=== PATIENT | female | born 1935 | race Asian ===

== ENCOUNTER → 2016-10-15 | Outpatient (CLI) | payer MEDICARE, OTHER ==
[~2016-10-15] MED LIST: ACETAMINOPHEN PO; AMLODIPINE BESYL5 MG PO; ANTIVERT PO; ASPIRIN PO; ASPIRIN81 M1 PO; ASPIRIN81 M2 PO; ASPIRIN81 MG PO; AUGMENTIN PO; BACTRIM DS TABL1 TA1 PO; BACTRIM DS TABL1 TA2 PO; BENAZEPRIL HCL40 MG PO; BENAZEPRIL PO; BENTYL10 M1 PO; BENTYL10 MG PO; CHEWABLE ASPIRI81 MG PO; CLARITIN10 M3 PO; CLOBETASOL 0.0560 GM TOP; CLOPIDOGREL BIS75 MG PO; CLOPIDOGREL75 MG PO; DARVOCET-N 1001 TAB PO; DEXILANT60 MG PO; FIORICET; FIORINAL CAPSUL1 CAP PO; HCTZ PO; HYDROCHLOROTHIA25 MG PO; HYDROCODONE/APA1 T15 PO; HYDROXYZINE HCL10 MG PO; KCL PO; LASIX20 MG PO; LEVAQUIN PO; LEVOTHYROXINE88 MCG PO; LEVOXYL88 MC1 PO; LORTAB 5/500 TA1 TA1 PO; LORTAB 5/500 TA1 TA2 PO; LOTENSIN PO; LOTENSIN40 MG PO; MACROBID100 M1 PO; MECLIZINE HCL25 M2 PO; NEXIUM PO; NITROGYLCERIN SUBLINGUAL; NORCO1 TAB 10/3 PO; NORMODYNE PO; NORMODYNE100 M1 PO; NORMODYNE100 MG PO; NORVASC PO; NORVASC10 MG PO; NYSTATIN-TRIAMC15 G1 TP; PHENERGAN25 M1 PO; PHENERGAN25 MG PO; PLAVIX PO; PRILOSEC20 MG PO; PROTONIX PO; REVLIMID25 MG PO; SALONPAS PATCH1 EACH TOP; SIMVASTATIN10 MG PO; SPIRONOLAC1 TAB 25/2 PO; SYNTHROID PO; SYNTHROID112 MCG PO; SYNTHROID88 MCG PO; TRAMADOL HCL50 M1 PO; TRAMADOL HCL50 M2 PO; TRIAMCINOLONE A15 G1 TOP; TYLENOL EXTRA500 M1 PO; ULTRAM PO; ZANTAC PO; ZETIA PO; ZOCOR PO; ZOCOR10 MG PO; ZOFRAN ODT4 MG PO; ZOFRAN PO
--- NOTE | ~2016-10-15 | XA51 ---
[facility] A Service of [facility] & [facility] RADIOLOGY TEXT RESULTS PATIENT: IGLESIA KRAUSE [facility] : [facility] UNIT #: [id number] AGE: [address]: Syd Cadet MD SEX: F ORDER DR: [id number] [place], [place] [address] [id number] O MR#: [id number] Acc #: [id number] NAME: IGLESIA KRAUSE : 1935 SEX: F STUDY DATE/TIME: 10/15/2016 9:31 UNIT: [facility] ROOM: STUDY DESCRIPTION: XA BX Bone Marrow Attending Physician: Syd Cadet M.D. Ordering Physician: Syd Cadet M.D. Primary Care Physician: Dena Velez M.D. MEDICAL IMAGING REPORT This report is preliminary unless electronic signature is present EXAM CT-guided bone marrow biopsy. INDICATION Multiple myeloma. FINDINGS Please see CT guide for results. Dictated by... Kay Gross M.D. THIS IS AN ELECTRONICALLY VERIFIED REPORT Kay Gross M.D. at 10/19/2016 3:28 PM AFF/hermann TD: 10/16/2016 09:28 JOB #: [id number] MEDICAL IMAGING REPORT Page 1 of 1 COPY
--- NOTE | ~2016-10-15 | CT134 ---
[facility] A Service of [facility] & [facility] RADIOLOGY TEXT RESULTS PATIENT: IGLESIA KRAUSE [facility] UNIT #: [id number] AGE: [address]: Syd Cadet MD SEX: F ORDER DR: [id number] [facility]. [place], [place] [address] [id number] O MR#: [id number] Acc #: [id number] NAME: IGLESIA KRAUSE : 1935 SEX: F STUDY DATE/TIME: 10/15/2016 9:31 UNIT: [facility] ROOM: STUDY DESCRIPTION: CT Guide Attending Physician: Syd Cadet M.D. Ordering Physician: Syd Cadet M.D. Primary Care Physician: Dena Velez M.D. MEDICAL IMAGING REPORT This report is preliminary unless electronic signature is present EXAM CT-guided bone marrow biopsy. INDICATION Multiple myeloma. TECHNIQUE This CT exam was performed with one or more of the following radiation dose reduction techniques: automatic exposure control, adjustment of mA and/or kV according to patient size, and iterative reconstruction. PROCEDURE The risks, benefits, and alternatives to the procedure were explained to the patient, and signed informed consent was obtained. She was placed prone on the CT scanner gantry and preliminary CT scan was performed through the region of interest. An appropriate site overlying the patient's left iliac bone was selected. The overlying skin was marked. Patient was prepped and draped in the usual sterile fashion. Time-out was performed as per protocol. Skin and subcutaneous tissues were anesthetized with buffered lidocaine and a bone marrow biopsy needle was advanced into the left iliac bone. Repeat CT scan confirmed appropriate positioning of the needle which was then advanced into the bone marrow. Bone marrow aspirate was obtained. Needle was advanced further into the bone marrow and then removed which showed an adequate core sample. Manual pressure was applied until hemostasis was obtained. Patient did receive moderate sedation. I supervised the IVR nurse who monitored the patient's vital signs for a total of 6 minutes face to face time. IMPRESSION Technically successful bone marrow biopsy as noted above. CT was used during the procedure and permanent images were saved. [facility] A Service of [facility] & [facility] RADIOLOGY TEXT RESULTS PATIENT: IGLESIA KRAUSE LOCATION: [facility] : 36 UNIT #: [id number] AGE: [address]: Syd Cadet MD SEX: F ORDER DR: Dictated by... Kay Gross M.D. THIS IS AN ELECTRONICALLY VERIFIED REPORT Kay Gross M.D. at 10/19/2016 3:28 PM AFF/hermann TD: 10/16/2016 09:16 JOB #: [id number] MEDICAL IMAGING REPORT Page 1 of 1 COPY
[2016-10-15 08:40] LABS: HEMATOCRIT 29.9 % (35.0-45.0); HEMOGLOBIN 9.8 gm/dL (12.0-16.0); MEAN CELL VOLUME 94.9 FL (83-96); MEAN CORPUSCULAR HEMOGLOBIN 31.2 PG (28-34); MEAN CORPUSCULAR HGB CONC 32.9 g/dL (30-36); MEAN PLATELET VOLUME 8.1 FL (6.5-11.5); RED BLOOD COUNT 3.16 X10e (3.90-5.30); RED CELL DISTRIBUTION WIDTH 15.2 % (11.0-15.5); WHITE BLOOD COUNT 5.8 X10e3 (4.0-10.5)
[2016-10-15 08:51] LABS: PARTIAL THROMBOPLASTIN TIME 24.3 SECONDS (23.5-31.3); PROTHROMBIN TIME (PATIENT) 10.9 SECONDS (10.0-11.7)
== END | disposition home or self-care (01) ==
LOC: CCAT 07:59
PROVIDERS: Internal Medicine Medical Oncology
DX: C90.00 Multiple myeloma not having achieved remission (principal)
CPT/HCPCS: 38221; G0364; 36415; 77012; 82947; 85027; 85610; 85730; 88305; 88311; 88313; 99144; 99151; 99153; J2250; J3010

== ENCOUNTER → 2016-11-10 | Outpatient (CLI) | payer MEDICARE ==
--- NOTE | ~2016-11-10 | MR32 ---
[facility] A Service of [facility] & [facility] RADIOLOGY TEXT RESULTS PATIENT: IGLESIA KRAUSE LOCATION: [facility] : 37 UNIT #: [id number] AGE: [address]: Dena Velez MD SEX: F ORDER DR: [id number] [address] [address] [id number] O MR#: [id number] Acc #: [id number] NAME: IGLESIA KRAUSE : 1935 SEX: F STUDY DATE/TIME: 11/10/2016 10:29 UNIT: [facility] ROOM: STUDY DESCRIPTION: MR Cervical Wo Contrast Attending Physician: Dena Velez M.D. Referring Physician: Dena Velez M.D. Ordering Physician: Dena Velez M.D. Primary Care Physician: Dena Velez M.D. MRI CENTER REPORT This report is preliminary unless electronic signature is present. EXAM MRI of the cervical spine without contrast dated 11/10/2016. COMPARISON MRI cervical spine without contrast dated 02/05/1999. HISTORY Increasing neck pain, worse on the right side in the last 1-2 months. History of degenerative disc disease and right upper extremity radiculopathy. FINDINGS Multisequence multiplanar imaging of the cervical spine was obtained without contrast. Disc osteophyte complex are at multiple levels. There is minimal retrolisthesis of C4 with respect to C5. Cord is compressed and flattened at the level of C4-5 and C5-6. In the sagittal STIR sequence, faint increased T2 signal noted within the cord at the level of C5-6 (series 4, image 6). It is not well correlated in the other sequences. It is unclear if it is a true lesion or artifactual. It was not seen on the previous study. Disc disease has worsened at C5-6 when compared to the prior study from 8 years ago. Pre and paravertebral soft tissues are unremarkable. C2-3: Small amount of fluid is seen within the articulation of bilateral lateral masses. Mild disc bulge is seen with small central protrusion. No canal stenosis or neural foraminal narrowing. Mild bilateral facet changes. C3-4: Concentric disc bulge with superimposed central focal moderate protrusion with mild canal stenosis. No neural foraminal narrowing. Mild bilateral facet changes. [facility]. [facility] A Service of [facility] RADIOLOGY TEXT RESULTS PATIENT: IGLESIA KRAUSE LOCATION: [facility] : 37 UNIT #: [id number] AGE: [address]: Dena Velez MD SEX: F ORDER DR: C4-5: Disc osteophyte complex with superimposed nnofc-al-yolq central moderate protrusion/extrusion with severe canal stenosis and cord compression. Uvqn-ky-lpflljow bilateral facet changes are noted with inferior mild bilateral neural foraminal narrowing. C5-6: Disc osteophyte complex which is asymmetrically prominent in the rmmawgs-bk-xszpf subarticular region. Ruqldpyb-ue-gvsdpu canal stenosis is noted with cord compression. Mild inferior bilateral neural foraminal narrowing is noted with relatively patent superior aspect. C6-7: Concentric disc bulge with tiny central protrusion and mild bilateral facet changes. Borderline size to mild canal stenosis. C7-T1: Mild degenerative disc disease without canal stenosis or neural foraminal narrowing. Minimal bilateral facet changes. IMPRESSION 1. Degenerative changes are noted at multiple levels as described above, relatively worse at C4-5 and C5-6 with severe canal stenosis and cord compression. 2. Faint increased T2 signal is noted within the C5-6 cord in the sagittal T2 STIR sequence but it is not correlated in the other sequences including the sagittal T2 restore sequence. It could be artifactual; however, correlate clinically. 3. When compared to the previous study, findings are worse at C5-6 with the relatively stable findings at the other levels. 1. Dictated by... Yamil Ko M.D. THIS IS AN ELECTRONICALLY VERIFIED REPORT Yamil Ko M.D. at 11/11/2016 11:36 AM CPR/bernice TD: 11/11/2016 11:22 JOB #: [id number] MRI CENTER REPORT Page 1 of 1
== END | disposition home or self-care (01) ==
LOC: SMRI 09:39
DX: M50.33 Other cervical disc degeneration, cervicothoracic region (principal); M48.02 Spinal stenosis, cervical region; M50.21 Other cervical disc displacement, high cervical region; M50.220 Other cervical disc displacement, mid-cervical region, unspecified level; M50.81 Other cervical disc disorders, high cervical region; M50.820 Other cervical disc disorders, mid-cervical region, unspecified level; M50.821 Other cervical disc disorders at C4-C5 level; M25.78 Osteophyte, vertebrae
CPT/HCPCS: 72141

== ENCOUNTER → 2016-12-04 | Day surgery (SDC) | payer MEDICARE, OTHER ==
--- NOTE | ~2016-12-04 | OR ---
Unit #: [id number] #: [id number] Patient: IGLESIA KRAUSE [id number] [place], [place] [address] [id number] O MR#: [id number] NAME: IGLESIA KRAUSE ROOM: Date of Procedure: 12/04/2016 Admission Date: 12/04/2016 Surgeon: Waldo Sorto M.D. : 1935 Attending Physician: Waldo Sorto M.D. Primary Care Physician: Dena Velez M.D. OPERATIVE REPORT PREOPERATIVE DIAGNOSES The patient presented with history of epigastric pain, dyspepsia, and left and right upper quadrant abdominal pain. It is noteworthy, she has had extensive evaluation in the past, which was negative. PROCEDURES PERFORMED Upper gastrointestinal endoscopy. POSTOPERATIVE DIAGNOSIS Completely normal examination up to third part of duodenum. No mucosal abnormalities whatsoever present. RECOMMENDATIONS The patient will be seen for a followup in the office in 6 to 8 weeks' time. No other change in medication as needed. We will review her all her previous evaluation before taking any further action. SEDATION USED MAC. DESCRIPTION OF PROCEDURE Following detailed explanation of the potential risks and complications of an upper endoscopy, namely perforation, bleeding, complication related to sedation, the patient was brought to GI lab and laid in the left lateral decubitus position. Lubricated tip of the Olympus video upper endoscope was passed through the bite block into the proximal esophagus under direct vision. The entire esophageal mucosa was examined and appeared normal. Z-line was nicely demarcated, there being no esophagitis or hiatus hernia. The scope was then advanced into the gastric cavity and the latter was insufflated. Mucosa of the fundus, body, and antrum was examined and appeared unremarkable. Pylorus was intubated with visualization of the normal duodenal bulb and second and third part of the duodenum. Upon withdrawal and retroflexion, incisura, cardia, and greater curve examined and no additional findings noted. The scope was then withdrawn in the distal esophagus. The entire esophageal mucosa was examined all the way up to pharynx. No additional findings noted. The patient tolerated the procedure without any postprocedure complications. Dictated by... Waldo Sorto M.D. Unit #: [id number] #: [id number] Patient: IGLESIA KRAUSE TD: 12/04/2016 08:55 JOB #: [id number] OPERATIVE REPORT Page 1 of 1 X Waldo Sorto MD PROCEDURE OPERATIVE NOTE
== END | disposition home or self-care (01) ==
LOC: COPS 06:39
DX: R10.13 Epigastric pain (principal); R10.11 Right upper quadrant pain; K21.9 Gastro-esophageal reflux disease without esophagitis; M19.90 Unspecified osteoarthritis, unspecified site; M41.9 Scoliosis, unspecified; I10 Essential (primary) hypertension; E78.5 Hyperlipidemia, unspecified; E89.0 Postprocedural hypothyroidism; Z87.442 Personal history of urinary calculi; Z86.73 Personal history of transient ischemic attack (TIA), and cerebral infarction without residual deficits; Z91.041 Radiographic dye allergy status; Z85.830 Personal history of malignant neoplasm of bone; Z90.49 Acquired absence of other specified parts of digestive tract; Z98.890 Other specified postprocedural states; Z79.899 Other long term (current) drug therapy; Z79.01 Long term (current) use of anticoagulants; Z79.82 Long term (current) use of aspirin; Z79.2 Long term (current) use of antibiotics

== ENCOUNTER → 2016-12-07 | Outpatient (CLI) | payer MEDICARE, OTHER | END | disposition home or self-care (01) | LOC: CSSDAY 10:00 | DX: N39.0 Urinary tract infection, site not specified (principal); Z79.2 Long term (current) use of antibiotics | CPT/HCPCS: 96372; J1335 ==

== ENCOUNTER → 2016-12-08 | Outpatient (CLI) | payer MEDICARE, OTHER | END | disposition home or self-care (01) | LOC: CSSDAY 09:15 | DX: N39.0 Urinary tract infection, site not specified (principal); Z79.2 Long term (current) use of antibiotics | CPT/HCPCS: 96372; J1335 ==

== ENCOUNTER → 2016-12-09 | Outpatient (CLI) | payer MEDICARE, OTHER | END | disposition home or self-care (01) | LOC: CSSDAY 09:14 | DX: N39.0 Urinary tract infection, site not specified (principal); Z79.2 Long term (current) use of antibiotics | CPT/HCPCS: 96372; J1335 ==

== ENCOUNTER → 2016-12-10 | Outpatient (CLI) | payer MEDICARE, OTHER | END | disposition home or self-care (01) | LOC: CSSDAY 09:03 | DX: N39.0 Urinary tract infection, site not specified (principal); Z79.2 Long term (current) use of antibiotics | CPT/HCPCS: 96372; J1335 ==

== ENCOUNTER → 2016-12-11 | Outpatient (CLI) | payer MEDICARE, OTHER | END | disposition home or self-care (01) | LOC: CSSDAY 09:07 | DX: N39.0 Urinary tract infection, site not specified (principal); Z79.2 Long term (current) use of antibiotics | CPT/HCPCS: 96372; J1335 ==

== ENCOUNTER → 2017-01-11 | Outpatient (CLI) | payer MEDICARE, OTHER ==
--- NOTE | ~2017-01-11 | CR124 ---
[facility] A Service of [facility] & [facility] RADIOLOGY TEXT RESULTS PATIENT: IGLESIA KRAUSE LOCATION: [facility] : 36 UNIT #: [id number] AGE: [address]: Dena Velez MD SEX: F ORDER DR: [id number] [facility] [address] [facility] [place], [place] [address] [id number] O MR#: [id number] Acc #: [id number] NAME: IGLESIA KRAUSE : 1935 SEX: F STUDY DATE/TIME: 01/11/2017 11:07 UNIT: [facility] ROOM: STUDY DESCRIPTION: CR Foot 2 Views Rt Attending Physician: Dena Velez M.D. Referring Physician: Dena Velez M.D. Ordering Physician: Dena Velez M.D. Primary Care Physician: Dena Velez M.D. MEDICAL IMAGING REPORT This report is preliminary unless electronic signature is present EXAM Right foot 3 views. HISTORY Pain in great toe, swelling x 3 weeks. No known injury. FINDINGS 3 views of the right foot demonstrates hypertrophic change off the medial aspect of the first metatarsal head consistent with a bunion. No significant arthritic changes seen at the first MTP joint. No erosions. Soft tissues unremarkable. Bone mineralization appears normal. No acute fracture or dislocation. IMPRESSION Hypertrophic change medial aspect of the first metatarsal head consistent with developing bunion. The patient also demonstrates mild hallux valgus deformity and mild lateral subluxation of the sesamoids. No significant arthropathy seen about the MTP joint. Dictated by... Jessica Crawford M.D. THIS IS AN ELECTRONICALLY VERIFIED REPORT Jessica Crawford M.D. at 01/12/2017 5:08 PM Tam TD: 01/12/2017 08:24 JOB #: [id number] MEDICAL IMAGING REPORT Page 1 of 1 COPY
== END | disposition home or self-care (01) ==
LOC: CRAD 10:49
DX: M79.674 Pain in right toe(s) (principal); M20.11 Hallux valgus (acquired), right foot
CPT/HCPCS: 73620